=== PATIENT | male | born 1985 | race African-American/Black ===

== ENCOUNTER 2017-09-25 22:23 | Emergency (ER) | payer OTHER ==
[~2017-09-25 22:23] MED LIST: CYCLOBENZAPRINE10 M1 PO; MOBIC15 M1 PO; PROAIR HFA8.5 GM INH; ZOFRAN ODT4 M1 SL
[2017-09-25 22:32] VITALS: BP 129/85
[2017-09-25] MEDS ORDERED: PREDNISONE50 M1 PO (22:51)
[2017-09-25] MEDS ORDERED: PROAIR HFA8.5 GM INH (22:51)
--- NOTE | 2017-09-25 22:52 | ED DYSPNEA/ASTHMA COMPLAINT ---
History of Present Illness General Chief Complaint: Wheezing/Asthma Stated Complaint: PER PT EXACERBATED ASTHMA, SOB Source: patient, family Exam Limitations: no limitations Vital Signs & Intake/Output Vital Signs & Intake/Output Vital Signs Date Time Temp Pulse Resp B/P B/P Pulse O2 O2 Flow FiO2 Mean Ox Delivery Rate 09/25 2232 97.8 92 20 129/85 96 Room Air ED Intake and Output 09/26 0000 09/25 1200 Intake Total Output Total Balance Patient 220 lb Weight Allergies Coded Allergies: No Known Allergies (03/24/16) Reconcile Medications Albuterol Sulfate (Proair Hfa) 90 MCG HFA.AER.AD 2 PUF INH PRN ASTHMA ( Reported) Albuterol Sulfate (Proair Hfa) 90 MCG HFA.AER.AD 2 PUF INH Q4-6 PRN PRN cough wgheezing Prednisone 50 MG TABLET 1 TAB PO DAILY asthma Triage Note: PER PT INCREASED SOB RAN OUT OF INHALER O2 SAT 96 RA SCATTERED RHONCHI Triage Nurses Notes Reviewed? yes Onset: Abrupt Duration: day(s): (1), constant, getting worse Timing: single episode today Severity: mild, moderate Activities at Onset: none Prior Episodes/Possible Cause: occasional episodes Associated Symptoms: cough, wheezing HPI: 32-year-old male history of asthma presents for evaluation of cough, wheezing and chest tightness. Patient states symptoms have been ongoing for the past week become worse today. He states that he had been using his albuterol inhaler with improvement but ran out today. He denies any hemoptysis fever. The cough is dry. No chest pain. He's had similar episodes in the past he does not smoke. Past History Travel History Traveled to [place] past 21 day No Medical History Any Pertinent Medical History? see below for history Neurological: NONE EENT: NONE Cardiovascular: NONE Respiratory: asthma Gastrointestinal: NONE Hepatic: NONE Renal: NONE Musculoskeletal: NONE Psychiatric: NONE Endocrine: NONE Surgical History Surgical History: non-contributory Psychosocial History What is your primary language [place] Tobacco Use: Never used Family History Hx Contributory? No Review of Systems Review of Systems Constitutional: Reports: no symptoms. EENTM: Reports: no symptoms. Respiratory: Reports: see HPI, cough, short of breath, wheezing. Cardiovascular: Reports: no symptoms. GI: Reports: no symptoms. Genitourinary: Reports: no symptoms. Musculoskeletal: Reports: no symptoms. Skin: Reports: no symptoms. Neurological/Psychological: Reports: no symptoms. Hematologic/Endocrine: Reports: no symptoms. Immunologic/Allergic: Reports: no symptoms. All Other Systems: Reviewed and Negative Physical Exam Physical Exam General Appearance: well developed/nourished, no apparent distress, alert, awake Head: atraumatic, normal appearance Eyes: Bilateral: normal appearance, EOMI. Ears, Nose, Throat: normal pharynx, normal ENT inspection, hearing grossly normal Neck: normal inspection, supple, full range of motion Respiratory: chest non-tender, no respiratory distress, wheezing Cardiovascular: regular rate/rhythm, normal peripheral pulses Peripheral Pulses: 2+ radial (R), 2+ radial (L) Extremities: normal inspection, normal range of motion, no edema Neurologic/Psych: no motor/sensory deficits, awake, alert, oriented x 3, normal gait, normal mood/affect Skin: intact, normal color, warm/dry Lymphatic: no anterior cervical stephen Core Measures ACS in differential dx? No CVA/TIA Diagnosis No Sepsis Present: No Sepsis Focused Exam Completed? No Progress Differential Diagnosis: asthma, bronchitis, CHF, COPD, pulmonary embolism, pneumonia Plan of Care: Current Medications Sig/Pierre Start time Last Medication Dose Stop Time Status Admin Prednisone 60 MG ONCE ONE 09/25 2299 UNVr 09/25 2300 Patient seen and evaluated. He is here with asthma exacerbation. He has wheezing bilaterally. Nose has hypoxia or cyanosis. Patient is medicated with prednisone and a DuoNeb here. He is feeling much better. Reevaluation of the lungs show only mild wheezing. Patient will be discharged home with a prednisone burst and a refill for his pro-air inhaler. Advised him to follow with a primary care doctor for recheck discussed return precautions patient agrees the plan Initial ED EKG: none Departure Departure Disposition: HOME OR SELF CARE Condition: Stable Clinical Impression Primary Impression: Asthma exacerbation Qualifiers: Asthma severity: unspecified severity Asthma persistence: intermittent Qualified Code: J45.21 - Mild intermittent asthma with (acute) exacerbation Referrals: Sakshi TUBBSMyl (PCP/Family) Additional Instructions: Rest and drink plenty fluids. Use pro-air inhaler 2 puffs every 4-6 hours as needed for cough or shortness of breath. Take prednisone as directed for the full course. Make a follow-up with her primary care doctor to review all results of today's visit monitor symptoms and return with any concerns. Departure Forms: Customer Survey General Discharge Information Prescriptions: Current Visit Scripts Albuterol Sulfate (Proair Hfa) 2 PUF INH Q4-6 PRN PRN cough wgheezing #1 INHAL Prednisone 1 TAB PO DAILY #5 TAB Critical Care Note Critical Care Note Critical Care Time: non-applicable
== END 2017-09-25 23:05 ==
LOC: ERH 22:23
DX: J45.901 Unspecified asthma with (acute) exacerbation (principal); R07.89 Other chest pain

== ENCOUNTER 2018-01-19 00:01 | Emergency (ER) | payer OTHER ==
[~2018-01-19] VITALS: Ht 170.2 cm; Wt 117.9 kg
[~2018-01-19 00:01] MED LIST changes: +PREDNISONE50 M1 PO
[2018-01-19 00:23] VITALS: BP 118/76
--- NOTE | 2018-01-19 00:31 | ED GENERAL ADULT ---
History of Present Illness General Chief Complaint: Wheezing/Asthma Stated Complaint: PT C/O DIFF BREATHING HX ASTHMA Source: patient Exam Limitations: no limitations Vital Signs & Intake/Output Vital Signs & Intake/Output Vital Signs Date Time Temp Pulse Resp B/P B/P Pulse O2 O2 Flow FiO2 Mean Ox Delivery Rate 01/19 0028 97 Room Air 01/19 0023 98.9 82 18 118/76 97 Room Air Allergies Coded Allergies: No Known Allergies (03/24/16) Reconcile Medications Albuterol Sulfate (Proair Hfa) 90 MCG HFA.AER.AD 2 PUF INH Q4-6 PRN PRN shortness of breath Triage Note: SEE NURSES NOTES Triage Nurses Notes Reviewed? yes HPI: 32-year-old male past medical history of asthma presents with shortness of breath while at work today. Patient states that he is out of his inhaler. Called his primary care however he cannot be seen for 2 weeks. No other signs symptoms or complaints. Past History Travel History Traveled to [place] past 21 day No Medical History Any Pertinent Medical History? see below for history Neurological: NONE EENT: NONE Cardiovascular: NONE Respiratory: asthma Gastrointestinal: NONE Hepatic: NONE Renal: NONE Musculoskeletal: NONE Psychiatric: NONE Endocrine: NONE Surgical History Surgical History: non-contributory Psychosocial History What is your primary language [place] Family History Hx Contributory? No Review of Systems Review of Systems Constitutional: Reports: no symptoms, see HPI. EENTM: Reports: no symptoms. Respiratory: Reports: no symptoms. Cardiovascular: Reports: no symptoms. GI: Reports: no symptoms. Genitourinary: Reports: no symptoms. Musculoskeletal: Reports: no symptoms. Skin: Reports: no symptoms. Neurological/Psychological: Reports: no symptoms. Hematologic/Endocrine: Reports: no symptoms. Immunologic/Allergic: Reports: no symptoms. All Other Systems: Reviewed and Negative Physical Exam Physical Exam General Appearance: well developed/nourished, comfortable Comments: Gen.: Well-nourished, well-developed, no acute respiratory distress. Head: Normocephalic, atraumatic. Eyes: Normal inspection bilaterally Ears: Normal inspection bilaterally Nose: Normal inspection Throat/mouth : Moist mucosa Neck: Supple, full range of motion, no goiter Heart: Regular rate and rhythm, no murmurs rubs or gallops Lungs: Clear to auscultation bilaterally with normal air entry Chest: Nontender Back: Normal range of motion Abdomen: Soft, nontender, nondistended, normal bowel sounds Extremities: Normal range of motion grossly, equal radial pulses, no cyanosis clubbing or edema Neurologic: Cranial nerves grossly intact, speech is clear Skin: warm and dry Psychiatric: Calm, cooperative, no apparent delusions or hallucinations Core Measures ACS in differential dx? No CVA/TIA Diagnosis: No Sepsis Present: No Sepsis Focused Exam Completed? No Progress Differential Diagnoses I considered the following diagnoses in my evaluation of the patient: Asthma exacerbation Plan of Care: Current Medications Sig/Pierre Start time Last Medication Dose Stop Time Status Admin Albuterol Sulfate 3 ML ONCE ONE 01/19 30 UNVr (Proventil) 01/19 31 Ipratropium [place] 2.5 ML ONCE ONE 01/19 30 UNVr (Atrovent) 01/19 31 Initial ED EKG: none Comments: Positive response to nebulizer treatment. Departure Departure Disposition: HOME OR SELF CARE Condition: Stable Clinical Impression Primary Impression: Asthma exacerbation Qualifiers: Asthma severity: unspecified severity Asthma persistence: unspecified Qualified Code: J45.901 - Unspecified asthma with (acute) exacerbation Referrals: Sakshi TUBBS,Myl (PCP/Family) Departure Forms: Customer Survey General Discharge Information Prescriptions: Current Visit Scripts Albuterol Sulfate (Proair Hfa) 2 PUF INH Q4-6 PRN PRN shortness of breath #1 INHAL Ref 1 Comments Please note that there might be incidental findings in your evaluation that are unrelated to the current emergency department visit. Please notify your primary care doctor about this emergency department visit in order to obtain and review all of the testing performed so that these incidental findings can be monitored as needed. If you had an x-ray performed, please understand that some fractures may not be seen on the initial set of x-rays. If your symptoms persist you might need a repeat set of x-rays to check for such a fracture. If you had a laceration evaluated, please understand that foreign bodies such as glass or wood may not be visible to the naked eye or on plain x-rays. If the wound becomes red, swollen, increasingly more painful or if there is any drainage from the wound, please have it reevaluated by a physician for the possibility of a retained foreign body. If you're unable to follow up as outlined in the discharge instructions please return to the emergency department. Critical Care Note Critical Care Note Critical Care Time: non-applicable
[2018-01-19] MEDS ORDERED: PROAIR HFA8.5 GM INH (00:37)
== END 2018-01-19 00:56 ==
LOC: ERH 00:01
DX: J45.901 Unspecified asthma with (acute) exacerbation (principal)
CPT/HCPCS: 1263; 1395